=== PATIENT | female | born 1990 | race American Indian/Alaskan Native ===

== ENCOUNTER 2020-06-29 07:38 | Emergency (ER) | payer SELFPAY ==
[2020-06-29 07:49] VITALS: BP 125/92
--- NOTE | 2020-06-29 08:33 | Emergency Department Report ---
- General Chief Complaint: Adult Asthma Stated Complaint: ASTHMA PUI?: Yes Time Seen by Provider: 06/29/20 08:12 Source: patient Mode of arrival: Ambulatory Limitations: No Limitations - History of Present Illness Initial Comments: This very pleasant 29-year-old female presents the emergency department chief complaint of "my asthma has been acting up." Patient reports her rescue inhaler has not been helping and she thinks she may have ran out of it. She has past medical history of asthma that is usually intermittent and mild and usually needs a rescue inhaler occasionally but she states since the weather has been getting cold she has noted she is using it more frequently. She denies any fever, chills, night sweats, headache, dizziness, blurry vision, nausea, vomiting, diarrhea, chest pain, weakness or any other associated symptoms. States she will get tightness in her chest usually in the morning. She does state over the past 3 days she has lost her sense of smell and taste. She denies any sick contacts but is concerned she may have COVID-19. - Related Data Home Medications Medication Instructions Recorded Confirmed Last Taken Albuterol (Nf) [Proventil] 2 mg PO 10/06/13 10/06/13 10/06/13 Previous Rx's Medication Instructions Recorded Last Taken Type Albuterol Sulfate [Proventil Hfa] 6.7 gm IH Q4HR PRN #1 hfa.aer.ad 06/29/20 Unknown Rx Fluticasone [Flonase] 1 spray NS QDAY #1 bottle 06/29/20 Unknown Rx Loratadine [Claritin] 10 mg PO DAILY #30 tablet 06/29/20 Unknown Rx methylPREDNISolone [Medrol 4MG 4 mg PO ONCE #1 tab.ds.pk 06/29/20 Unknown Rx DOSEPAK (21 tabs)] Allergies Allergy/AdvReac Type Severity Reaction Status Date / Time No Known Allergies Allergy Unverified 10/06/13 19:05 ED Review of Systems ROS: Stated complaint: ASTHMA Other details as noted in HPI Comment: All other systems reviewed and negative Constitutional: denies: chills, fever Eyes: denies: eye pain, eye discharge, vision change ENT: denies: ear pain, throat pain Respiratory: denies: cough, shortness of breath, wheezing Cardiovascular: denies: chest pain, palpitations Endocrine: no symptoms reported Gastrointestinal: denies: abdominal pain, nausea, diarrhea Genitourinary: denies: urgency, dysuria, discharge Musculoskeletal: denies: back pain, joint swelling, arthralgia Skin: denies: rash, lesions Neurological: denies: headache, weakness, paresthesias Psychiatric: denies: anxiety, depression Hematological/Lymphatic: denies: easy bleeding, easy bruising ED Past Medical Hx - Past Medical History Previous Medical History?: Yes Hx Asthma: Yes - Surgical History Past Surgical History?: No - Family History Family history: no significant - Social History Smoking Status: Never Smoker Substance Use Type: None - Medications Home Medications: Home Medications Medication Instructions Recorded Confirmed Last Taken Type Albuterol (Nf) [Proventil] 2 mg PO 10/06/13 10/06/13 10/06/13 History Albuterol Sulfate [Proventil Hfa] 6.7 gm IH Q4HR PRN #1 hfa.aer.ad 06/29/20 Unknown Rx Fluticasone [Flonase] 1 spray NS QDAY #1 bottle 06/29/20 Unknown Rx Loratadine [Claritin] 10 mg PO DAILY #30 tablet 06/29/20 Unknown Rx methylPREDNISolone [Medrol 4MG 4 mg PO ONCE #1 tab.ds.pk 06/29/20 Unknown Rx DOSEPAK (21 tabs)] ED Physical Exam - General Limitations: No Limitations General appearance: alert, in no apparent distress - Head Head exam: Present: atraumatic, normocephalic - Eye Eye exam: Present: normal appearance, PERRL, EOMI Pupils: Present: normal accommodation - ENT ENT exam: Present: normal exam, normal orophraynx, mucous membranes moist - Neck Neck exam: Present: normal inspection, full ROM. Absent: tenderness, meningismus - Respiratory Respiratory exam: Present: normal lung sounds bilaterally. Absent: respiratory distress, wheezes, rales, rhonchi, stridor, chest wall tenderness - Cardiovascular Cardiovascular Exam: Present: regular rate, normal rhythm, normal heart sounds. Absent: systolic murmur, diastolic murmur, rubs, gallop - GI/Abdominal GI/Abdominal exam: Present: soft, normal bowel sounds. Absent: distended, tenderness, guarding, rebound, rigid - Extremities Exam Extremities exam: Present: normal inspection, full ROM, normal capillary refill. Absent: tenderness, calf tenderness (Negative Homans' sign bilaterally) - Back Exam Back exam: Present: normal inspection - Neurological Exam Neurological exam: Present: alert, oriented X3 - Psychiatric Psychiatric exam: Present: normal affect, normal mood - Skin Skin exam: Present: warm, dry, intact, normal color. Absent: rash ED Course Vital Signs 06/29/20 07:49 Temperature 98.2 F Pulse Rate 82 Respiratory 18 Rate Blood Pressure 125/92 [Right] O2 Sat by Pulse 99 Oximetry ED Medical Decision Making - Medical Decision Making Patient nontoxic in no acute distress. Vital signs are stable. She is PERC negative and a low risk by Wells criteria making PE unlikely. She had no clinical signs of DVT on exam. Her lungs were clear currently. Her symptoms are usually worse in the cold or right when she wakes up in the morning. I will refill her inhaler and recommended Claritin Flonase and a short course of Medrol Dosepak and PCP follow-up. As far as her loss of taste and smell I did educate her that this is a symptom of coronavirus and that she should be tested prior to returning to work if positive she would need to self quarantine for 10 to 14 days if negative she may return after 72 hours after symptoms have resol tash. She was instructed to return the [facility] she develops any change or worsening symptoms such as shortness of breath. She verbalized understand the diagnosis, treatment plan and follow-up instructions and all of her questions were answered. - Differential Diagnosis Asthma exacerbation, COVID-19, PE Critical care attestation.: If time is entered above; I have spent that time in minutes in the direct care of this critically ill patient, excluding procedure time. ED Disposition Clinical Impression: Acute asthma exacerbation Qualifiers: Asthma severity: mild Asthma persistence: intermittent Qualified Code(s): J4 5.21 - Mild intermittent asthma with (acute) exacerbation Disposition: TO HOME OR SELFCARE Is pt being admited?: No Condition: Stable Instructions: Asthma, Adult Prescriptions: Loratadine [Claritin] 10 mg PO DAILY #30 tablet Fluticasone [Flonase] 1 spray NS QDAY #1 bottle methylPREDNISolone [Medrol 4MG DOSEPAK (21 tabs)] 4 mg PO ONCE #1 tab.ds.pk Albuterol Sulfate [Proventil Hfa] 6.7 gm IH Q4HR PRN #1 hfa.aer.ad PRN Reason: wheezing Referrals: PRIMARY MD NATALIIA [Primary Care Provider] - 3-5 Days [facility] [Provider Group] - 3-5 Days RENA FRASER MD [Staff Physician] - 3-5 Days PATRICK TANNER MD [Staff Physician] - 3-5 Days Forms: Work/School Release Form(ED) Time of Disposition: 08:31
== END 2020-06-29 08:37 | disposition home or self-care (01) ==
LOC: ED 07:38
DX: J45.901 Unspecified asthma with (acute) exacerbation (principal)
CPT/HCPCS: 99282